=== PATIENT | female | born 1985 | race Hispanic/Latino ===

== ENCOUNTER 2018-01-03 11:28 | Emergency (ER) | payer OTHER ==
[2018-01-03 12:41] LABS: Absolute Lymphocytes (CBC) 1.2 K/uL (0.7-4.9); Absolute Monocytes 0.5 K/uL (0.1-1.3); Absolute Neutrophil 4.9 K/uL (1.8-8.0); Basophils % 0.4 % (0-1.3); Eosinophils % 0.4 % (0-4.4); Hematocrit 35.9 % (36.0-45.0); Lymphocytes % 17.8 % (15.3-44.8); MCH 29.6 pg (27.0-35.0); MCV 86.8 fL (80-100); MPV 8.8 fL (7.6-11.3); RBC Red Blood Cell Count 4.14 M/uL (3.86-4.86)
[2018-01-03 13:03] LABS: BUN Blood Urea Nitrogen 18 mg/dL (7-18); Bicarbonate 26 mmol/L (21-32); Glucose Level 84 mg/dL (74-106); Potassium 4.2 mmol/L (3.5-5.1); Sodium Level 140 mmol/L (136-145)
--- NOTE | 2018-01-03 13:08 | RAD REPORT ---
EXAM DESCRIPTION: CT - Facial Bones W Con Mpr - 01/03/2018 12:42 pm COMPARISON: None. TECHNIQUE: Axial 2 millimeter thick images of the facial bones were obtained during dynamic enhancem ent using nonionic contrast with sagittal and coronal reconstruction imaging. All CT scans are performed using dose optimization technique as appropriate and may include automated exposure control or mA/KV adjustment according to patient size. FINDINGS: Intracranial portion the examination is unremarkable. Mastoid air cells are clear. No glob e or orbital content abnormality. There is minimal mucosal thickening in the left maxillary sinus bel ieved to be unrelated to subsequently detailed dental decay issues. Vasculature shows normal enhancem ent. No bulky lymphadenopathy identifiable. Parotid and submandibular glands are clear. No pharyngeal mucosal mass. Tonsillar and tongue base tissues are within normal limits. No epiglottis or laryngeal abnormality seen. Patient has multiple broken teeth in the bilateral mandible and maxilla. Dental decay is evident at s everal sites. There is edematous/inflammatory stranding in the fatty tissues along the left lateral m argin of the mandible and maxilla. No abscess or drainable fluid collection evident. IMPRESSION: Multiple broken teeth are present with dental decay evident most pronounced left-side ma xilla. Edematous/inflammatory stranding in the left side soft tissues adjacent to the mandible and maxilla. There is no abscess or drainable fluid collection. Mild mucosal thickening along the floor of the left maxillary sinus probably unrelated to the dental disease.
[2018-01-03] MEDS ORDERED: MORPHINE 4 MG/ML SYR ONE (13:09)
[2018-01-03] MEDS ORDERED: ONDANSETRON 4 MG/2 ML VIAL ONE (13:09)
[2018-01-03] MEDS ORDERED: CLINDAMYCIN 600MG/D5W 600 MG/50 ML BAG IV ONE (13:27)
--- NOTE | 2018-01-03 13:32 | EDPHYS ---
Physician Documentation [facility] Name: Ari Burgos Age: 32 yrs Sex: Female : 1985 Arrival Date: 01/03/2018 Time: 11:30 Bed 14 Private MD: ED Physician Bernardo Trinidad HPI: 01/03 12:13 This 32 yrs old Female presents to ER via Ambulatory with complaints of jmm Abscess tooth. 12:13 The patient presents with pain. The problem is located in the upper left second jmm bicuspid. Onset: The symptoms/episode began/occurred gradually, 3 day(s) ago. This is a 32 year old female with no chronic medical conditions that presents to the ED with left sided dental pain. beginning approx 3 days ago. Patient states she was prescribed amoxicillin without relief. Denies fever. . RN ENDOSCOPY: 11:33 LMP 12/12/2017 la1 Historical: - Allergies: 11:33 No Known Allergies; la1 - PMHx: 11:33 None; la1 - Immunization history:: Adult Immunizations up to date. - Social history:: Smoking status: Patient/guardian denies using tobacco. - Ebola Screening: : No symptoms or risks identified at this time. ROS: 12:13 Constitutional: Negative for fever, chills, and weight loss. jmm 12:13 Cardiovascular: Negative for chest pain, palpitations, and edema, Respiratory: Negative for shortness of breath, cough, wheezing, and pleuritic chest pain, Abdomen/GI: Negative for abdominal pain, nausea, vomiting, diarrhea, and constipation. 12:13 ENT: Positive for dental pain. 12:13 Neuro: Positive for headache. 12:13 All other systems are negative. Exam: 12:13 Neck: Trachea midline, Supple Chest/axilla: Normal chest wall appearance and motion. jmm Cardiovascular: Regular rate and rhythm. No edema appreciated Respiratory: Normal respirations, no respiratory distress appreciated Abdomen/GI: Non distended, soft Back: Normal ROM Skin: General appearance color normal MS/ Extremity: Moves all extremities, no obvious deformities appreciated, no edema noted to the lower extremities Neuro: Awake and alert, normal gait Psych: Behavior is normal, Mood is normal, Patient is cooperative and pleasant 12:13 Constitutional: The patient appears in no acute distress, alert, awake. 12:13 Head/face: left maxillary swelling appreciated. 12:13 ENT: Dental exam: missing teeth, specifically the upper left second bicuspid (#13), dental decay noted. Vital Signs: 11:33 BP 112 / 66; Pulse 80; Resp 16; Temp 98.3; Pulse Ox 100% on R/A; Weight 48.08 kg; la1 13:10 BP 105 / 71; Pulse 77; Resp 18; Pulse Ox 100% on R/A; tw2 13:38 BP 108 / 79; Pulse 71; Resp 17; Pulse Ox 100% on R/A; tw2 MDM: 11:54 Patient medically screened. [place] 13:30 Data reviewed: vital signs, nurses notes. Data interpreted: Pulse oximetry: on room air [place] is 100 %. Interpretation: normal. Counseling: I had a detailed discussion with the patient and/or guardian regarding: the historical points, exam findings, and any diagnostic results supporting the discharge/admit diagnosis, lab results, radiology results, the need for outpatient follow up, to return to the emergency department if symptoms worsen or persist or if there are any questions or concerns that arise at home. Response to treatment: the patient's symptoms have markedly improved after treatment. 01/03 11:55 Order name: Urine Dipstick--Ancillary (enter results) 01/03 11:55 Order name: Urine --Ancillary (enter results) 01/03 12:11 Order name: CBC with Diff; Complete Time: 13:07 [place] 01/03 12:11 Order name: BMP; Complete Time: 13:07 [place] 01/03 12:11 Order name: CT Facial Bones W/ Con \T\ Mpr; Complete Time: 13:17 [place] 01/03 12:11 Order name: Saline Lock; Complete Time: 13:09 [place] Administered Medications: 13:07 Drug: Zofran 4 mg Route: IVP; Site: right antecubital; tw2 13:57 Follow up: Response: No adverse reaction tw2 13:09 Drug: morphine 4 mg Route: IVP; Site: right antecubital; tw2 13:57 Follow up: Response: No adverse reaction; Pain is decreased tw2 13:30 Drug: Clindamycin 600 mg Route: IVPB; Infused Over: 30 mins; Site: right antecubital; tw2 13:57 Follow up: Response: No adverse reaction; IV Status: Completed infusion tw2 Disposition: 18:19 Co-signature as Attending Physician, Bernardo Trinidad MD. ma2 Disposition: 01/03/18 13:31 Discharged to Home. Impression: Dental Pain. - Condition is Stable. - Discharge Instructions: Dental Pain. - Prescriptions for Clindamycin HCl 300 mg Oral Capsule - take 1 capsule by ORAL route every 6 hours for 10 days; 40 capsule. Ultracet 37.5- 325 mg Oral Tablet - take 1 tablet by ORAL route every 6 hours - for up to 5 days; do not exceed 8 tablets per day.; 12 tablet. - Medication Reconciliation Form, Thank You Letter, Antibiotic Education, Prescription Opioid Use, Work release form form. - Follow up: Private Physician; When: 2 - 3 days; Reason: Recheck today's complaints, Continuance of care, Re-evaluation by your physician. Signatures: Dispatcher [employer] EDMS Jimenez Gruber PA PA jmm Attema, Lee, RN RN la1 Kenna Garcia RN RN tw2 Bernardo Trinidad MD MD ok2 Corrections: (The following items were deleted from the chart) 14:03 13:31 01/03/2018 13:31 Discharged to Home. Impression: Dental Pain. Condition is tw2 Stable. Forms are Medication Reconciliation Form, Thank You Letter, Antibiotic Education, Prescription Opioid Use. Follow up: Private Physician; When: 2 - 3 days; Reason: Recheck today's complaints, Continuance of care, Re-evaluation by your physician. jocelyne
--- NOTE | 2018-01-03 13:32 | ER ---
Nurse's Notes [facility] Name: Ari Burgos Age: 32 yrs Sex: Female : 1985 Arrival Date: 01/03/2018 Time: 11:30 Bed 14 Private MD: Diagnosis: Dental Pain Presentation: 01/03 11:32 Presenting complaint: Patient states: dental pain for a couple days, swelling since la1 this morning. Transition of care: patient was not received from another setting of care. Onset of symptoms was January 03, 2018. Risk Assessment: Do you want to hurt yourself or someone else? Patient reports no desire to harm self or others. Initial Sepsis Screen: Does the patient meet any 2 criteria? No. Patient's initial sepsis screen is negative. Does the patient have a suspected source of infection? No. Patient's initial sepsis screen is negative. Care prior to arrival: None. 11:32 Method Of Arrival: Ambulatory la1 11:32 Acuity: JARRETT 3 la1 [employer] T[employer]ER: 11:33 LMP 12/12/2017 la1 Historical: - Allergies: 11:33 No Known Allergies; la1 - PMHx: 11:33 None; la1 - Immunization history:: Adult Immunizations up to date. - Social history:: Smoking status: Patient/guardian denies using tobacco. - Ebola Screening: : No symptoms or risks identified at this time. Screenin:39 Abuse screen: Denies threats or abuse. Nutritional screening: No deficits noted. tw2 Tuberculosis screening: No symptoms or risk factors identified. Fall Risk None identified. Assessment: 11:45 General: Appears uncomfortable, Behavior is calm, cooperative, appropriate for age. tw2 Pain: Complains of pain in upper left second bicuspid (#13) and upper left second bicuspid and mouth. Neuro: Level of Consciousness is awake, alert, obeys commands, Oriented to person, place, time, situation. Cardiovascular: Denies chest pain, shortness of breath, Heart tones S1 S2 Capillary refill < 3 seconds Patient's skin is warm and dry. Respiratory: Airway is patent Respiratory effort is even, unlabored, Respiratory pattern is regular, symmetrical, Breath sounds are clear bilaterally. GI: No signs and/or symptoms were reported involving the gastrointestinal system. Abdomen is flat, Bowel sounds present X 4 quads. : No signs and/or symptoms were reported regarding the genitourinary system. EENT: No signs and/or symptoms were reported regarding the EENT system. Derm: No signs and/or symptoms reported regarding the dermatologic system. Musculoskeletal: No signs and/or symptoms reported regarding the musculoskeletal system. Range of motion: intact in all extremities. 12:45 Reassessment: Patient appears in no apparent distress at this time. Patient and/or tw2 family updated on plan of care and expected duration. Pain level reassessed. Patient is alert, oriented x 3, equal unlabored respirations, skin warm/dry/pink. 13:38 Reassessment: Patient appears in no apparent distress at this time. No changes from tw2 previously documented assessment. Patient and/or family updated on plan of care and expected duration. Pain level reassessed. Patient is alert, oriented x 3, equal unlabored respirations, skin warm/dry/pink. Vital Signs: 11:33 BP 112 / 66; Pulse 80; Resp 16; Temp 98.3; Pulse Ox 100% on R/A; Weight 48.08 kg; la1 13:10 BP 105 / 71; Pulse 77; Resp 18; Pulse Ox 100% on R/A; tw2 13:38 BP 108 / 79; Pulse 71; Resp 17; Pulse Ox 100% on R/A; tw2 ED Course: 11:30 Patient arrived in ED. mr 11:33 Triage completed. la1 11:33 Arm band placed on right wrist. la1 11:34 Bed in low position. Call light in reach. Pulse ox on. NIBP on. Warm blanket given. tw2 11:38 Kenna Garcia RN is Primary Nurse. tw2 11:50 Jimenez Gruber PA is PHCP. jmm 11:50 Bernardo Trinidad MD is Attending Physician. jmm 12:25 Missed attempt(s): 22 gauge in right antecubital area. blood collected. Bleeding tw2 controlled, band aid applied, catheter tip intact. 12:35 Missed attempt(s): 22 gauge in left antecubital area. Bleeding controlled, band aid tw2 applied, catheter tip intact. 12:40 CT completed. Patient moved to CT via wheelchair. Patient moved back from CT. cw1 12:42 CT Facial Bones W/ Con \T\ Mpr In Process Unspecified. EDMS 13:37 Awaiting: completion of iv abx PRIOR to discharge. tw2 14:02 No provider procedures requiring assistance completed. IV discontinued, intact, tw2 bleeding controlled, No redness/swelling at site. Pressure dressing applied. Administered Medications: 13:07 Drug: Zofran 4 mg Route: IVP; Site: right antecubital; tw2 13:57 Follow up: Response: No adverse reaction tw2 13:09 Drug: morphine 4 mg Route: IVP; Site: right antecubital; tw2 13:57 Follow up: Response: No adverse reaction; Pain is decreased tw2 13:30 Drug: Clindamycin 600 mg Route: IVPB; Infused Over: 30 mins; Site: right antecubital; tw2 13:57 Follow up: Response: No adverse reaction; IV Status: Completed infusion tw2 Outcome: 13:31 Discharge ordered by . jocelyne 14:02 Discharged to home ambulatory, with family. tw2 14:02 Condition: stable 14:02 Discharge instructions given to patient, family, Instructed on discharge instructions, follow up and referral plans. no drinking with medication, no driving heavy equipment, medication usage, Demonstrated understanding of instructions, follow-up care, medications, Prescriptions given X 2. 14:03 Patient left the ED. tw2 Signatures: Dispatcher [employer] EDMS Jimenez Gruber PA PA jmm Rivera, Maria mr BonillaSari cw1 Primitivo Zhu, RN RN la1 Kenna Garcia RN RN tw2
[2018-01-03 15:15] LABS: Urine Blood TRACE (NEG); Urine Glucose NEGATIVE (NEG); Urine Protein NEGATIVE (NEG); Urine Specific Gravity >1.030 (1.005-1.030); Urine pH 5.5 (5.0-7.0)
== END 2018-01-03 14:03 | disposition home or self-care (01) ==
LOC: ER 11:28
DX: K08.89 Other specified disorders of teeth and supporting structures (principal)
CPT/HCPCS: 36415; 70487; 76377; 80048; 81003; 81025; 85025; 96365; 96375; 99284; J2405; Q9967